=== PATIENT | male | born 1960 | race Caucasian/White ===

== ENCOUNTER 2016-12-30 06:14 | Inpatient (IN) | payer MEDICAID ==
[~2016-12-30] VITALS: Ht 172.7 cm; Wt 108.3 kg
[~2016-12-30 06:14] MED LIST: AMLO10TA2 PO; AMLO5TAB4 PO; ASPI-621 PO; ATOR10TA PO; ATOR10TA9 PO; CARV-39 PO; CHLO25TA PO; DIAZ5TAB PO; HYDR-3144 PO; HYDR-3307 PO; HYDR2TAB13 PO; HYDR50TA3 PO; LISI-170 PO; METH4TAB2 PO; OXYC5CAP4 PO; PANT20TA3 PO; TICA90TA PO; TIZA4TAB PO
[2016-12-30] MEDS ORDERED: SODIUM CHLORIDE FLUSH 10ML SYR IVF ONE (07:00)
[2016-12-30] MEDS ORDERED: SODIUM CHLORIDE 0.9% 1,000ML IVBOLUS ONE (07:00)
[2016-12-30] MEDS ORDERED: ONDANSETRON 2MG/ML, 2ML IVPush ONE (07:00)
[2016-12-30] MEDS ORDERED: SODIUM CHLORIDE 0.9% 1,000 ML IV ONE ×2 (07:00→10:00)
[2016-12-30] MEDS ORDERED: MORPHINE SULFATE 4 MG/ML, 1ML ONE ×2 (07:02→08:58)
[2016-12-30] MEDS ORDERED: ONDANSETRON 2MG/ML, 2ML ONE (07:02)
[2016-12-30] MEDS: MORPHINE SULFATE 4 MG/ML, 1ML IVPush PRN ×6 (07:06→23:55)
[2016-12-30 07:20] LABS: HEMOGLOBIN 16.8 g/dL (13.7-18.0)
[2016-12-30 07:57] LABS: ASPARTATE AMINO TRANSFERASE 28 U/L (15-37); BLOOD UREA NITROGEN 31 mg/dL (7-18)
[2016-12-30] MEDS ORDERED: LABETALOL 20 MG/4 ML ONE (10:18)
[2016-12-30] MEDS ORDERED: ONDANSETRON 2MG/ML, 2ML IVP PRN (10:30)
[2016-12-30] MEDS ORDERED: LABETALOL 5MG/ML, 20ML IVPush PRN (10:30)
[2016-12-30] MEDS ORDERED: LABETALOL 5MG/ML, 20ML IV PRN (10:30)
[2016-12-30] MEDS ORDERED: ONDANSETRON ODT 4 MG PO PRN (10:30)
[2016-12-30] MEDS ORDERED: LABETALOL 20 MG/4 ML IVPush PRN (10:32)
[2016-12-30] MEDS ORDERED: LABETALOL 5MG/ML ONE (10:34)
[2016-12-30] MEDS ORDERED: hydrALAzine 20 MG/ML, 1ML IV PRN (11:00)
[2016-12-30 11:56] VITALS: BP 154/98
[2016-12-30] MEDS ORDERED: morphine SULFATE 10 MG/ML, 1ML ONE (12:08)
[2016-12-30] MEDS: CARVEDILOL 25 MG TABLET PO SCH ×2 (13:00→21:04)
[2016-12-30] MEDS: AMLODIPINE 5 MG TABLET PO SCH (13:00)
[2016-12-30] MEDS: CEFTRIAXONE PMX 2GM/50ML 50 ML IV SCH (14:08)
[2016-12-30] MEDS: D5%-0.45NACL+KCL 20MEQ 1,000 ML IV SCH (14:08)
[2016-12-30] MEDS: METRONIDAZOLE PMX 500MG/100ML 100 ML IV SCH ×2 (15:03→21:58)
[2016-12-30 17:30] VITALS: BP 178/98
[2016-12-30 19:10] VITALS: BP 190/122
[2016-12-30] MEDS ORDERED: LISINOPRIL 20 MG TABLET PO SCH (21:00)
[2016-12-30] MEDS: ENOXAPARIN 40 MG/0.4 ML SQ SCH (21:02)
[2016-12-30] MEDS: ATORVASTATIN 10 MG TABLET PO SCH (21:05)
[2016-12-30 21:07] VITALS: BP 164/104
[2016-12-30 23:55] VITALS: BP 175/102
[2016-12-31] MEDS: MORPHINE SULFATE 4 MG/ML, 1ML IVPush PRN ×5 (03:44→20:29)
[2016-12-31] MEDS: D5%-0.45NACL+KCL 20MEQ 1,000 ML IV SCH ×2 (03:46→13:55)
[2016-12-31 04:30] VITALS: BP 158/84
[2016-12-31 05:40] LABS: ASPARTATE AMINO TRANSFERASE 21 U/L (15-37); BLOOD UREA NITROGEN 32 mg/dL (7-18)
[2016-12-31] MEDS: METRONIDAZOLE PMX 500MG/100ML 100 ML IV SCH ×3 (06:10→22:17)
[2016-12-31] MEDS ORDERED: morphine SULFATE 10 MG/ML, 1ML ONE (07:10)
[2016-12-31 08:53] VITALS: BP 172/94
[2016-12-31] MEDS: CARVEDILOL 25 MG TABLET PO SCH ×2 (08:54→22:17)
[2016-12-31] MEDS: AMLODIPINE 5 MG TABLET PO SCH (08:54)
[2016-12-31] MEDS ORDERED: BISACODYL 10 MG SUPP PR PRN (09:00)
[2016-12-31] MEDS ORDERED: PANTOPRAZOLE 20MG TABLET PO SCH (09:00)
[2016-12-31] MEDS: CEFTRIAXONE PMX 2GM/50ML 50 ML IV SCH (12:30)
[2016-12-31 14:34] VITALS: BP 160/92
[2016-12-31 18:49] VITALS: BP 149/87
[2016-12-31] MEDS: ENOXAPARIN 40 MG/0.4 ML SQ SCH (20:28)
[2016-12-31] MEDS: ATORVASTATIN 10 MG TABLET PO SCH (20:28)
[2017-01-01] MEDS: MORPHINE SULFATE 4 MG/ML, 1ML IVPush PRN ×3 (00:31→08:15)
[2017-01-01 00:47] VITALS: BP 133/82
[2017-01-01] MEDS: D5%-0.45NACL+KCL 20MEQ 1,000 ML IV SCH ×2 (03:22→14:49)
[2017-01-01 05:47] LABS: HEMOGLOBIN 13.7 g/dL (13.7-18.0)
[2017-01-01 05:49] LABS: BLOOD UREA NITROGEN 27 mg/dL (7-18)
[2017-01-01] MEDS: METRONIDAZOLE PMX 500MG/100ML 100 ML IV SCH ×3 (06:07→22:55)
[2017-01-01 08:00] VITALS: BP 176/73
[2017-01-01] MEDS: AMLODIPINE 5 MG TABLET PO SCH (09:57)
[2017-01-01] MEDS: CARVEDILOL 25 MG TABLET PO SCH ×2 (09:58→19:57)
[2017-01-01] MEDS: ACETAMINOPHEN 325 MG TABLET PO PRN ×3 (11:08→20:20)
[2017-01-01] MEDS: POLYETHYLENE GLYCOL 17 GM PACKET PO SCH ×4 (11:08→22:55)
[2017-01-01] MEDS: CEFTRIAXONE PMX 2GM/50ML 50 ML IV SCH (13:15)
[2017-01-01 16:00] VITALS: BP_SYST 175; BP_SYST 198; BP_DIAS 100; BP_DIAS 128
[2017-01-01 19:22] VITALS: BP 189/95
[2017-01-01] MEDS: ATORVASTATIN 10 MG TABLET PO SCH (19:57)
[2017-01-01] MEDS: ENOXAPARIN 40 MG/0.4 ML SQ SCH (19:57)
[2017-01-02 00:47] VITALS: BP 158/97
[2017-01-02] MEDS: D5%-0.45NACL+KCL 20MEQ 1,000 ML IV SCH ×2 (03:51→14:50)
[2017-01-02 05:24] LABS: HEMOGLOBIN 14.2 g/dL (13.7-18.0)
[2017-01-02 05:47] LABS: ASPARTATE AMINO TRANSFERASE 26 U/L (15-37); BLOOD UREA NITROGEN 18 mg/dL (7-18)
[2017-01-02] MEDS: METRONIDAZOLE PMX 500MG/100ML 100 ML IV SCH (06:30)
[2017-01-02 06:45] VITALS: BP 187/92
[2017-01-02] MEDS: AMLODIPINE 5 MG TABLET PO SCH (08:49)
[2017-01-02] MEDS: CARVEDILOL 25 MG TABLET PO SCH ×2 (08:49→19:48)
[2017-01-02] MEDS: ACETAMINOPHEN 325 MG TABLET PO PRN ×2 (08:50→21:41)
[2017-01-02 13:56] VITALS: BP 164/91
[2017-01-02] MEDS: metroNIDAZOLE 500 MG TABLET PO SCH ×2 (18:12→19:49)
[2017-01-02 19:48] VITALS: BP 204/130
[2017-01-02] MEDS: ATORVASTATIN 10 MG TABLET PO SCH (19:48)
[2017-01-02] MEDS: ENOXAPARIN 40 MG/0.4 ML SQ SCH (19:48)
[2017-01-03] MEDS: D5%-0.45NACL+KCL 20MEQ 1,000 ML IV SCH (00:13)
[2017-01-03 01:00] VITALS: BP 176/92
[2017-01-03 06:20] LABS: HEMOGLOBIN 14.9 g/dL (13.7-18.0)
[2017-01-03 06:29] LABS: BLOOD UREA NITROGEN 14 mg/dL (7-18)
[2017-01-03 06:33] LABS: ASPARTATE AMINO TRANSFERASE 22 U/L (15-37)
[2017-01-03 07:23] VITALS: BP 211/108
[2017-01-03] MEDS: metroNIDAZOLE 500 MG TABLET PO SCH (08:53)
[2017-01-03] MEDS: CARVEDILOL 25 MG TABLET PO SCH (08:54)
[2017-01-03] MEDS: AMLODIPINE 5 MG TABLET PO SCH (08:54)
[2017-01-03 09:40] VITALS: BP 172/93
[2017-01-03] MEDS ORDERED: METR500T PO (10:01)
[2017-01-03 14:15] VITALS: BP 187/114
== END 2017-01-03 15:24 | disposition home or self-care (01) | DRG 371 ==
LOC: ED 08:37 → EDIP 10:21 → 5SO 12:03
PROVIDERS: ADMIT Hospitalist; ATTEND Hospitalist
PROC: 0T9B70Z Drainage of Bladder with Drainage Device, Via Natural or Artificial Opening (ICD-10-PCS; principal; 2016-12-30)
DX: A04.7 Enterocolitis due to Clostridium difficile (principal); E43 Unspecified severe protein-calorie malnutrition; N17.0 Acute kidney failure with tubular necrosis; K50.90 Crohn's disease, unspecified, without complications; K56.7 Ileus, unspecified; E44.1 Mild protein-calorie malnutrition; I16.9 Hypertensive crisis, unspecified; R10.9 Unspecified abdominal pain; Z95.5 Presence of coronary angioplasty implant and graft; I25.10 Atherosclerotic heart disease of native coronary artery without angina pectoris; N18.9 Chronic kidney disease, unspecified; I13.10 Hypertensive heart and chronic kidney disease without heart failure, with stage 1 through stage 4 chronic kidney disease, or unspecified chronic kidney disease; G47.33 Obstructive sleep apnea (adult) (pediatric); E78.5 Hyperlipidemia, unspecified; F17.210 Nicotine dependence, cigarettes, uncomplicated; I16.0 Hypertensive urgency; K21.9 Gastro-esophageal reflux disease without esophagitis; E78.00 Pure hypercholesterolemia, unspecified; E11.65 Type 2 diabetes mellitus with hyperglycemia; E11.22 Type 2 diabetes mellitus with diabetic chronic kidney disease; Z83.3 Family history of diabetes mellitus; Z68.37 Body mass index [BMI] 37.0-37.9, adult; E66.9 Obesity, unspecified; G89.29 Other chronic pain
CPT/HCPCS: 36415; 70450; 74000; 74022; 74176; 80048; 80053; 80061; 81001; 82010; 82040; 82140; 82962; 83605; 83690; 83735; 84145; 84439; 84443; 85025; 85610; 85730; 87040; 87324; 93005; 93975; 96361; 96374; 96375; 96376; J0696; J1650; J2405; Q0162; J0360; J3480; J7030

== ENCOUNTER 2017-01-25 17:31 | Emergency (ER) | payer MEDICAID ==
[~2017-01-25] VITALS: Ht 172.7 cm; Wt 114.1 kg
[~2017-01-25 17:31] MED LIST changes: +METR500T PO
[2017-01-25] MEDS ORDERED: KETOROLAC 30 MG/1 ML IM ONE (18:00)
[2017-01-25] MEDS ORDERED: HYDROcodone/APAP 5/325 TABLET PO ONE (18:00)
[2017-01-25] MEDS ORDERED: DIAZEPAM 5 MG TABLET PO ONE (18:00)
[2017-01-25] MEDS ORDERED: DIAZEPAM 5 MG TABLET ONE (18:07)
[2017-01-25] MEDS ORDERED: KETOROLAC 30 MG/1 ML ONE (18:08)
[2017-01-25] MEDS ORDERED: HYDROcodone/APAP 5/325 TABLET ONE (18:08)
[2017-01-25 18:21] LABS: BLOOD UREA NITROGEN 27 mg/dL (7-18)
[2017-01-25 19:40] VITALS: BP 137/83
== END 2017-01-25 19:44 | disposition home or self-care (01) ==
LOC: ED 19:38
DX: S46.811A Strain of other muscles, fascia and tendons at shoulder and upper arm level, right arm, initial encounter (principal); S29.012A Strain of muscle and tendon of back wall of thorax, initial encounter; M54.2 Cervicalgia; M54.6 Pain in thoracic spine; I10 Essential (primary) hypertension; X58.XXXA Exposure to other specified factors, initial encounter; Y93.89 Activity, other specified; Y99.8 Other external cause status; Y92.89 Other specified places as the place of occurrence of the external cause
CPT/HCPCS: 36415; 71010; 80048; 82040; 85025; 93005; 96372; 99285; J1885

== ENCOUNTER 2017-08-17 07:11 | Day surgery (SDC) | payer MEDICAID ==
[~2017-08-17] VITALS: Ht 174 cm; Wt 120.9 kg
[~2017-08-17 07:11] MED LIST changes: -HYDR-3144 PO; +HYDR-3245 PO; -HYDR2TAB13 PO; +HYDR2TAB29 PO; +OXYC5CAP2 PO; -OXYC5CAP4 PO
[2017-08-17 07:46] VITALS: BP 156/91
[2017-08-17] MEDS ORDERED: CARV25TA12 PO (07:46)
[2017-08-17] MEDS ORDERED: METOPROLOL PO (07:46)
[2017-08-17] MEDS ORDERED: AMLODIPINE PO (07:46)
[2017-08-17] MEDS ORDERED: LISI-170 PO (07:46)
[2017-08-17] MEDS ORDERED: ATOR10TA9 PO (07:46)
[2017-08-17] MEDS ORDERED: SODIUM CHLORIDE 0.9% 1,000 ML IV ONE (08:00)
[2017-08-17] MEDS ORDERED: FENTANYL PF 100 MCG/2ML ONE (08:44)
[2017-08-17] MEDS ORDERED: FLUMAZENIL 0.1 MG/1 ML, 5ML ONE (08:45)
[2017-08-17] MEDS ORDERED: NALOXONE 1 MG/ML, 2ML ONE (08:45)
[2017-08-17] MEDS ORDERED: MIDAZOLAM 1 MG/ML, 5ML ONE ×2 (08:45)
== END 2017-08-17 11:05 ==
LOC: OUT 07:11
PROVIDERS: ATTEND Internal Medicine Nephrology
DX: I12.9 Hypertensive chronic kidney disease with stage 1 through stage 4 chronic kidney disease, or unspecified chronic kidney disease (principal); N18.3 Chronic kidney disease, stage 3 (moderate); I25.10 Atherosclerotic heart disease of native coronary artery without angina pectoris; F17.210 Nicotine dependence, cigarettes, uncomplicated; D64.9 Anemia, unspecified; Z72.89 Other problems related to lifestyle; Z86.19 Personal history of other infectious and parasitic diseases
CPT/HCPCS: 36415; 50200; 77012; 85610; 88300; 99156; 99157; J2250; J3010; J2310

== ENCOUNTER 2018-04-10 09:03 | Inpatient (IN) | payer MEDICAID ==
[~2018-04-10] VITALS: Ht 172.7 cm; Wt 123.6 kg
[2018-04-10] VITALS (7 sets, daily range): BP systolic 143–200; BP diastolic 75–114
[~2018-04-10 09:03] MED LIST changes: +AMLODIPINE PO; +CARV25TA12 PO; +METOPROLOL PO
[2018-04-10] MEDS ORDERED: FURO20TA3 PO (09:41)
[2018-04-10 09:46] LABS: BASOPHILS # (AUTO) 0.03 x10^3/uL (0-0.1); BASOPHILS % (AUTO) 1 % (0-1); EOSINOPHILS # (AUTO) 0.26 x10^3/uL (0-0.4); EOSINOPHILS % (AUTO) 5 % (1-7); LYMPHOCYTES # (AUTO) 0.78 x10^3/uL (1-3.4); LYMPHOCYTES % (AUTO) 16 % (22-44); MD NO; MEAN CORPUSCULAR HEMOGLOBIN 33.4 pg (27.5-34.5); MEAN CORPUSCULAR HGB CONC 34.7 g/dL (33.2-36.2); MEAN CORPUSCULAR VOLUME 96.3 fL (81-97); MEAN PLATELET VOLUME 8.1 fL (7.4-10.4); MONOCYTES % (AUTO) 12 % (2-9); NEUTROPHILS # (AUTO) 3.19 x10^3/uL (1.8-6.8); NEUTROPHILS % (AUTO) 66 % (42-75); PLATELET COUNT 263 x10^3/uL (130-400); RED BLOOD COUNT 3.83 x10^6/uL (4.38-5.82); RED CELL DISTRIBUTION WIDTH 13.9 % (9.4-14.8)
[2018-04-10 09:57] LABS: ALBUMIN 3.2 g/dL (3.4-5.0); ANION GAP 10 mmol/L (5-15); CALCIUM 8.1 mg/dL (8.5-10.1); CHLORIDE 110 mmol/L (98-107); CREATININE 4.21 mg/dL (0.7-1.3)
[2018-04-10] MEDS ORDERED: ONDANSETRON 2MG/ML, 2ML IVPush PRN (12:00)
[2018-04-10] MEDS ORDERED: DOCUSATE 100 MG CAPSULE PO PRN (12:00)
[2018-04-10] MEDS ORDERED: ACETAMINOPHEN 325 MG TABLET PO PRN (12:00)
[2018-04-10] MEDS ORDERED: hydrALAzine 20 MG/ML, 1ML IVPush PRN (12:00)
[2018-04-10] MEDS ORDERED: CALAMINE LOTION 180ML TP PRN (12:00)
[2018-04-10] MEDS ORDERED: GUAIFENESIN/COD200MG-20MG/10ML LIQUID PO PRN (12:00)
[2018-04-10 12:19] LABS: HIGH-SENSITIVITY CRP 0.9 mg/dL (0.02-0.30)
[2018-04-10 12:54] LABS: ABSOLUTE RETICS # 0.05 x10^6/uL (0.5-1.5); RED BLOOD COUNT 3.83 x10^6/uL (4.38-5.82); RETICULOCYTE COUNT % 1.31 % (0.5-1.5)
[2018-04-10 13:13] LABS: HCT (SEDRATE) 36.9 % (39.2-51.8)
[2018-04-10] MEDS: DIPHENHYDRAMINE 50 MG CAPSULE PO PRN ×2 (13:16→18:43)
[2018-04-10] MEDS: CARVEDILOL 25 MG TABLET PO SCH ×2 (13:16→18:43)
[2018-04-10] MEDS: AMLODIPINE 5 MG TABLET PO SCH (13:16)
[2018-04-10] MEDS: HEPARIN 5,000 UNITS/ML, 1ML SQ SCH ×2 (13:16→20:14)
[2018-04-10 14:40] LABS: MICROSCOPIC AUTO
[2018-04-10 14:44] LABS: CULTURE INDICATED? NO
[2018-04-10 14:51] LABS: CREATININE,URINE RANDOM 55.3 mg/dL
[2018-04-10] MEDS: LABETALOL 5MG/ML, 20ML IVPush PRN (17:54)
[2018-04-11] VITALS (7 sets, daily range): BP systolic 144–177; BP diastolic 70–111
[2018-04-11] MEDS: LABETALOL 5MG/ML, 20ML IVPush PRN (02:49)
[2018-04-11] MEDS: CARVEDILOL 25 MG TABLET PO SCH ×2 (05:21→18:22)
[2018-04-11] MEDS: HEPARIN 5,000 UNITS/ML, 1ML SQ SCH ×3 (05:25→19:54)
[2018-04-11 05:38] LABS: ALANINE AMINOTRANSFERASE 22 U/L (12-78); ANION GAP 7 mmol/L (5-15); CALCIUM 8.2 mg/dL (8.5-10.1); CHLORIDE 109 mmol/L (98-107)
[2018-04-11 05:42] LABS: BASOPHILS % (AUTO) 0 % (0-1); EOSINOPHILS % (AUTO) 0 % (1-7); LYMPHOCYTES # (AUTO) 0.59 x10^3/uL (1-3.4); LYMPHOCYTES % (AUTO) 10 % (22-44); MD NO; MEAN CORPUSCULAR HEMOGLOBIN 33.6 pg (27.5-34.5); MEAN CORPUSCULAR HGB CONC 34.6 g/dL (33.2-36.2); MEAN CORPUSCULAR VOLUME 97.1 fL (81-97); MEAN PLATELET VOLUME 8.6 fL (7.4-10.4); MONOCYTES % (AUTO) 11 % (2-9); NEUTROPHILS # (AUTO) 4.46 x10^3/uL (1.8-6.8); NEUTROPHILS % (AUTO) 79 % (42-75); PLATELET COUNT 237 x10^3/uL (130-400); RED BLOOD COUNT 3.55 x10^6/uL (4.38-5.82); RED CELL DISTRIBUTION WIDTH 13.8 % (9.4-14.8)
[2018-04-11 05:46] LABS: ALKALINE PHOSPHATASE 58 U/L (45-117); BILIRUBIN,TOTAL 0.2 mg/dL (0.2-1.0); CHOLESTEROL, TOTAL 140 mg/dL (140-239); HDL CHOL % 33 % (26-37); HDL CHOLESTEROL (DIRECT) 46 mg/dL (40-60); LDL CHOLESTEROL,CALCULATED 69 mg/dL (54-169); LDL/HDL RATIO 1.5 (0.5-3.0); THYROID STIMULATING HORMONE 0.842 mIU/L (0.358-3.740); TRIGLYCERIDES 124 mg/dL (50-200); VLDL CHOLESTEROL 25 mg/dL (0-25)
[2018-04-11] MEDS ORDERED: SODIUM CHLORIDE 0.9% 1,000 ML IV SCH (07:30)
[2018-04-11] MEDS: DIPHENHYDRAMINE 50 MG CAPSULE PO PRN ×2 (08:45→16:38)
[2018-04-11] MEDS: AMLODIPINE 5 MG TABLET PO SCH (08:45)
[2018-04-11 12:44] LABS: OCCULT BLOOD NEGATIVE (NEGATIVE)
[2018-04-11 13:49] LABS: CREATININE,URINE RANDOM 73.3 mg/dL
[2018-04-11] MEDS: MINERA CRM, 60GM TP SCH ×2 (16:20→19:54)
[2018-04-11] MEDS: AQUAPHOR NATURAL HEALING OINT 50GM TP SCH ×2 (16:21→19:54)
[2018-04-12 02:00] VITALS: BP 183/96
[2018-04-12] MEDS: HEPARIN 5,000 UNITS/ML, 1ML SQ SCH ×3 (04:42→20:00)
[2018-04-12] MEDS: LABETALOL 5MG/ML, 20ML IVPush PRN (04:43)
[2018-04-12] MEDS: MINERA CRM, 60GM TP SCH ×4 (05:13→20:06)
[2018-04-12] MEDS: AQUAPHOR NATURAL HEALING OINT 50GM TP SCH ×4 (05:13→20:05)
[2018-04-12] MEDS: CARVEDILOL 25 MG TABLET PO SCH ×2 (05:13→18:17)
[2018-04-12 05:21] LABS: BASOPHILS # (AUTO) 0.03 x10^3/uL (0-0.1); BASOPHILS % (AUTO) 0 % (0-1); EOSINOPHILS % (AUTO) 0 % (1-7); LYMPHOCYTES # (AUTO) 0.59 x10^3/uL (1-3.4); LYMPHOCYTES % (AUTO) 7 % (22-44); MD NO; MEAN CORPUSCULAR HEMOGLOBIN 32.9 pg (27.5-34.5); MEAN CORPUSCULAR HGB CONC 33.5 g/dL (33.2-36.2); MEAN CORPUSCULAR VOLUME 98.3 fL (81-97); MEAN PLATELET VOLUME 8.5 fL (7.4-10.4); MONOCYTES # (AUTO) 0.56 x10^3/uL (0.2-0.8); MONOCYTES % (AUTO) 7 % (2-9); NEUTROPHILS # (AUTO) 7.24 x10^3/uL (1.8-6.8); NEUTROPHILS % (AUTO) 86 % (42-75); PLATELET COUNT 247 x10^3/uL (130-400); RED BLOOD COUNT 3.64 x10^6/uL (4.38-5.82); RED CELL DISTRIBUTION WIDTH 14.1 % (9.4-14.8)
[2018-04-12 05:26] LABS: ANION GAP 6 mmol/L (5-15); CALCIUM 8.8 mg/dL (8.5-10.1); CHLORIDE 108 mmol/L (98-107); CREATININE 4.08 mg/dL (0.7-1.3)
[2018-04-12 06:38] VITALS: BP 164/93
[2018-04-12] MEDS: AMLODIPINE 5 MG TABLET PO SCH (08:02)
[2018-04-12] MEDS: DIPHENHYDRAMINE 50 MG CAPSULE PO PRN (08:09)
[2018-04-12 13:06] VITALS: BP 166/90
[2018-04-12 19:18] VITALS: BP 173/82
[2018-04-13 03:47] VITALS: BP 177/93
[2018-04-13] MEDS: HEPARIN 5,000 UNITS/ML, 1ML SQ SCH ×2 (04:00→12:00)
[2018-04-13 05:33] LABS: ANION GAP 6 mmol/L (5-15); CALCIUM 8.9 mg/dL (8.5-10.1); CHLORIDE 108 mmol/L (98-107); CREATININE 3.81 mg/dL (0.7-1.3)
[2018-04-13] MEDS: MINERA CRM, 60GM TP SCH ×2 (05:52→11:00)
[2018-04-13] MEDS: CARVEDILOL 25 MG TABLET PO SCH (05:52)
[2018-04-13] MEDS: AQUAPHOR NATURAL HEALING OINT 50GM TP SCH ×2 (05:53→11:00)
[2018-04-13 07:07] VITALS: BP 177/92
[2018-04-13] MEDS: AMLODIPINE 5 MG TABLET PO SCH (07:41)
[2018-04-13] MEDS ORDERED: AMLO5TAB2 PO (10:45)
[2018-04-13] MEDS ORDERED: PETR50OI TP (10:45)
[2018-04-13] MEDS ORDERED: HYDR-3342 PO (10:45)
[2018-04-13] MEDS ORDERED: MINE454C2 TP (10:45)
[2018-04-13] MEDS ORDERED: METH4TAB2 PO (10:45)
[2018-04-13] MEDS ORDERED: CALA118S2 TP (10:45)
[2018-04-13] MEDS ORDERED: DIPH50CA PO (10:45)
[2018-04-13] MEDS ORDERED: CARV25TA12 PO (10:45)
== END 2018-04-13 13:27 | disposition home or self-care (01) | DRG 683 ==
LOC: ED 10:20 → EDIP 10:21 → ED 10:37 → 4WST 11:12 → DCLOUNGE 04-13 13:21
PROVIDERS: ADMIT Hospitalist; ATTEND Hospitalist
DX: N17.9 Acute kidney failure, unspecified (principal); Z68.41 Body mass index [BMI] 40.0-44.9, adult; E87.2 Acidosis; D63.1 Anemia in chronic kidney disease; E66.9 Obesity, unspecified; E78.00 Pure hypercholesterolemia, unspecified; E78.5 Hyperlipidemia, unspecified; F17.210 Nicotine dependence, cigarettes, uncomplicated; G47.33 Obstructive sleep apnea (adult) (pediatric); G89.29 Other chronic pain; R51 Headache; I13.10 Hypertensive heart and chronic kidney disease without heart failure, with stage 1 through stage 4 chronic kidney disease, or unspecified chronic kidney disease; K21.9 Gastro-esophageal reflux disease without esophagitis; L50.9 Urticaria, unspecified; N18.3 Chronic kidney disease, stage 3 (moderate); I25.10 Atherosclerotic heart disease of native coronary artery without angina pectoris; N26.9 Renal sclerosis, unspecified; N28.1 Cyst of kidney, acquired; Z83.3 Family history of diabetes mellitus; Z91.19 Patient's noncompliance with other medical treatment and regimen
CPT/HCPCS: 36415; 76770; 80048; 80053; 80061; 81001; 82040; 82272; 82436; 82550; 82570; 82728; 83540; 83550; 83735; 83935; 84100; 84133; 84156; 84300; 84443; 85025; 85045; 85651; 86141; 99285; J1644; J0360; J7030; J7512; Q0177

== ENCOUNTER 2018-05-01 12:31 | Emergency (ER) | payer MEDICAID ==
[~2018-05-01] VITALS: Ht 172.7 cm; Wt 115.0 kg
[~2018-05-01 12:31] MED LIST changes: +AMLO5TAB2 PO; +CALA118S2 TP; +DIPH50CA PO; +FURO20TA3 PO; +HYDR-3342 PO; +MINE454C2 TP; +PETR50OI TP
[2018-05-01 13:27] LABS: BASOPHILS # (AUTO) 0.02 x10^3/uL (0-0.1); BASOPHILS % (AUTO) 0 % (0-1); EOSINOPHILS # (AUTO) 0.36 x10^3/uL (0-0.4); EOSINOPHILS % (AUTO) 5 % (1-7); LYMPHOCYTES # (AUTO) 0.96 x10^3/uL (1-3.4); LYMPHOCYTES % (AUTO) 13 % (22-44); MD NO; MEAN CORPUSCULAR HEMOGLOBIN 32.4 pg (27.5-34.5); MEAN CORPUSCULAR HGB CONC 33.3 g/dL (33.2-36.2); MEAN CORPUSCULAR VOLUME 97.3 fL (81-97); MEAN PLATELET VOLUME 7.6 fL (7.4-10.4); MONOCYTES # (AUTO) 0.97 x10^3/uL (0.2-0.8); MONOCYTES % (AUTO) 13 % (2-9); NEUTROPHILS # (AUTO) 4.95 x10^3/uL (1.8-6.8); NEUTROPHILS % (AUTO) 68 % (42-75); PLATELET COUNT 334 x10^3/uL (130-400); RED BLOOD COUNT 4.08 x10^6/uL (4.38-5.82); RED CELL DISTRIBUTION WIDTH 13.9 % (9.4-14.8)
[2018-05-01] MEDS ORDERED: SODIUM CHLORIDE FLUSH 10ML SYR IVF ONE (13:30)
[2018-05-01] MEDS ORDERED: ONDANSETRON 2MG/ML, 2ML IVPush ONE (13:30)
[2018-05-01] MEDS ORDERED: FAMOTIDINE 20 MG/2 ML IVP ONE (13:30)
[2018-05-01 13:39] LABS: ALANINE AMINOTRANSFERASE 35 U/L (12-78); ALBUMIN 3.2 g/dL (3.4-5.0); ANION GAP 11 mmol/L (5-15); CALCIUM 8.4 mg/dL (8.5-10.1); CHLORIDE 110 mmol/L (98-107); CREATININE 4.94 mg/dL (0.7-1.3)
[2018-05-01] MEDS ORDERED: FAMOTIDINE 20 MG/2 ML ONE (13:39)
[2018-05-01] MEDS ORDERED: ONDANSETRON 2MG/ML, 2ML ONE (13:39)
[2018-05-01 13:42] LABS: ALKALINE PHOSPHATASE 64 U/L (45-117); BILIRUBIN,TOTAL 0.5 mg/dL (0.2-1.0); TOTAL PROTEIN 7.8 g/dL (6.4-8.2)
[2018-05-01] MEDS ORDERED: AMLODIPINE 5 MG TABLET PO ONE (14:00)
[2018-05-01] MEDS ORDERED: CARVEDILOL 25 MG TABLET PO ONE (14:00)
[2018-05-01] MEDS ORDERED: AMLODIPINE 5 MG TABLET ONE (14:12)
[2018-05-01 15:14] VITALS: BP 172/114
== END 2018-05-01 15:38 | disposition home or self-care (01) ==
LOC: ED 15:00
DX: I13.10 Hypertensive heart and chronic kidney disease without heart failure, with stage 1 through stage 4 chronic kidney disease, or unspecified chronic kidney disease (principal); N18.2 Chronic kidney disease, stage 2 (mild); E78.5 Hyperlipidemia, unspecified; I10 Essential (primary) hypertension; E78.00 Pure hypercholesterolemia, unspecified
CPT/HCPCS: 36415; 71045; 76700; 80053; 83690; 85025; 85610; 93005; 96374; 96375; 99285; J2405; Q0177; S0028

== ENCOUNTER 2018-10-27 07:26 | Emergency (ER) | payer MEDICAID ==
[~2018-10-27] VITALS: Ht 172.7 cm; Wt 109.0 kg
[~2018-10-27 07:26] MED LIST changes: +AMLO-150 PO; -AMLO10TA2 PO; +AMLO10TA8 PO; -AMLO5TAB2 PO; -ASPI-621 PO; +ASPI81TA45 PO
--- NOTE | 2018-10-27 07:51 | NUR ---
Pt reports having right chest port placed two days ago. dressing is clean dry and intact, no signs of infection. Pt complains of ADKINS, runny nose, cough, SOB, and right hip pain. Pt is alert, oriented, with NAD. Pt is connected to the monitor. Call light within reach. Addendum: 10/27/18 at 0907 by SAVANNA Pt has a small amount of dry blood on his dressing.
[2018-10-27] MEDS ORDERED: ACETAMINOPHEN 325 MG TABLET ONE (07:55)
[2018-10-27] MEDS ORDERED: ONDANSETRON ODT 4 MG ONE (07:58)
[2018-10-27] MEDS ORDERED: ACETAMINOPHEN 325 MG TABLET PO ONE (08:00)
[2018-10-27] MEDS ORDERED: ONDANSETRON ODT 4 MG PO ONE (08:00)
--- NOTE | 2018-10-27 08:01 | NUR ---
lab at bedside. Pt is aware of the need for a urine sample.
[2018-10-27 08:13] LABS: MEAN CORPUSCULAR HEMOGLOBIN 31.5 pg (27.5-34.5); MEAN CORPUSCULAR HGB CONC 33.3 g/dL (33.2-36.2); MEAN CORPUSCULAR VOLUME 94.7 fL (81-97); PLATELET COUNT 135 x10^3/uL (130-400); RED BLOOD COUNT 3.43 x10^6/uL (4.38-5.82); RED CELL DISTRIBUTION WIDTH 14.9 % (9.4-14.8)
--- NOTE | 2018-10-27 08:23 | NUR ---
pt is off the floor to radiology.
[2018-10-27 08:27] LABS: ALBUMIN 2.7 g/dL (3.4-5.0); ANION GAP 8 mmol/L (5-15); CALCIUM 8.6 mg/dL (8.5-10.1); CHLORIDE 105 mmol/L (98-107)
[2018-10-27 08:30] LABS: ALANINE AMINOTRANSFERASE 32 U/L (12-78); ALKALINE PHOSPHATASE 67 U/L (45-117); BILIRUBIN,TOTAL 0.7 mg/dL (0.2-1.0); CREATININE 6.65 mg/dL (0.7-1.3); TOTAL PROTEIN 6.8 g/dL (6.4-8.2)
[2018-10-27 08:36] LABS: MD YES
[2018-10-27 08:40] LABS: LYMPH#(MANUAL) 0.28 x10^3/uL (1-3.4); LYMPHS% (MANUAL) 2 % (22-44); MONOS#(MANUAL) 0.43 x10^3/uL (0.3-2.7); MONOS% (MANUAL) 3 % (2-9)
[2018-10-27 08:41] LABS: BAND#(MANUAL) 3.27 x10^3/uL; BANDS%(MANUAL) 23 % (0-7); SEG#(MANUAL) 10.22 x10^3/uL (1.8-6.8); SEGS% (MANUAL) 72 % (42-75)
[2018-10-27 08:42] LABS: ANISOCYTOSIS 1+
[2018-10-27 08:43] LABS: <PLATELET ESTIMATE> ADEQUATE; <PLT MORPHOLOGY> NORMAL PLT MORPH; PMNS WITH VACUOLES 1+
--- NOTE | 2018-10-27 08:54 | NUR ---
Pt is sitting at the side of the med. Respirations equal and non labored, NAD. Pt is connected to the monitor. Call light within reach. Reminded pt of the need for a urine sample.
--- NOTE | 2018-10-27 09:00 | NUR ---
Pt given water to drink. Okay per PA. Reminded pt of the need for a urine sample.
[2018-10-27 09:33] LABS: MICROSCOPIC AUTO
[2018-10-27 09:36] LABS: CULTURE INDICATED? YES
--- NOTE | 2018-10-27 10:17 | NUR ---
Pt is resting in bed, respirations equal and non labored. NAD. Pt is connected to the monitor. Call light within reach.
[2018-10-27 10:18] VITALS: BP 102/59
[2018-10-27] MEDS ORDERED: HYDROcodone/APAP 5/325 TABLET ONE (10:21)
[2018-10-27] MEDS ORDERED: HYDROcodone/APAP 5/325 TABLET PO ONE (10:30)
--- NOTE | 2018-10-27 11:19 | NUR ---
Patient given discharge instructions and they have confirmed that they understand the instructions. Patient ambulatory with steady gait.
== END 2018-10-27 11:21 | disposition home or self-care (01) ==
LOC: ED 08:40
DX: M25.551 Pain in right hip (principal); R11.2 Nausea with vomiting, unspecified; R05 Cough; I10 Essential (primary) hypertension; I25.10 Atherosclerotic heart disease of native coronary artery without angina pectoris; E78.00 Pure hypercholesterolemia, unspecified; K21.9 Gastro-esophageal reflux disease without esophagitis; E78.5 Hyperlipidemia, unspecified; M54.16 Radiculopathy, lumbar region
CPT/HCPCS: 36415; 71045; 73502; 80053; 81001; 83690; 85025; 87086; 93005; 99284; Q0162